=== PATIENT | female | born 1950 | race Caucasian/White ===

== ENCOUNTER 2017-10-29 00:45 | Observation (INO) | payer BC, MEDICARE ==
[~2017-10-29] VITALS: Ht 160 cm; Wt 105.7 kg
[~2017-10-29 00:45] MED LIST: ACET-2119 PO; ROSU5TAB4 PO; TELM20TA2 PO
[2017-10-29 01:57] LABS: PARTIAL THROMBOPLASTIN TIME 28 SECONDS (22-32); PROTHROMBIN TIME 10.7 SECONDS (9.0-12.0)
[2017-10-29 02:00] LABS: ALANINE AMINOTRANSFERASE 34 U/L (12-78); ALBUMIN 3.4 G/DL (3.4-5.0); ALBUMIN/GLOBULIN RATIO 0.7 (1.1-1.5); ALKALINE PHOSPHATASE 114 IU/L (46-116); ANION GAP 9 (8-16); ASPARTATE AMINO TRANSFERASE 39 U/L (10-37); BILIRUBIN,TOTAL 1.1 MG/DL (0.1-1.0); BLOOD UREA NITROGEN 19 MG/DL (7-18); BUN/CREATININE RATIO 15.2 (6.6-38.0); CALCIUM 8.9 MG/DL (8.5-10.1); CHLORIDE 97 MMOL/L (99-107); CREATININE 1.25 MG/DL (0.40-0.90); GLUCOSE 299 MG/DL (70-104); POTASSIUM 3.7 MMOL/L (3.5-5.1); SODIUM 130 MMOL/L (135-145); TOTAL CARBON DIOXIDE 24.2 MMOL/L (24-32); TOTAL PROTEIN 8.3 G/DL (6.4-8.2); eGFR 43 ML/MIN
[2017-10-29] MEDS ORDERED: ondansetron/PF 4mg/2ml inj IV ONE (02:10)
[2017-10-29] MEDS ORDERED: morphine 4 MG/ML inj SYRINge IV ONE ×3 (02:10→05:20)
[2017-10-29 02:13] LABS: BASOPHILS % (AUTO) 0.1 % (0-1); EOSINOPHILS % (AUTO) 0 % (0-6); HEMATOCRIT 38.1 % (35.0-45.0); LYMPHOCYTES # (AUTO) 1.2 X10'3 (1.1-4.8); LYMPHOCYTES % (AUTO) 6.3 % (21-51); MEAN CORPUSCULAR HEMOGLOBIN 28.3 PG (27.0-31.0); MEAN CORPUSCULAR VOLUME 83.2 FL (78-98); MEAN PLATELET VOLUME 8.8 FL (7.4-10.4); MONOCYTES # (AUTO) 1.4 X10'3 (0-0.9); MONOCYTES % (AUTO) 7.8 % (2-12); NEUTROPHILS # (AUTO) 15.7 X10'3 (1.8-7.7); NEUTROPHILS % (AUTO) 85.8 % (42-75); PLATELET COUNT 251 X10'3 (140-440); RED BLOOD COUNT 4.57 X10'6 (4.20-5.60); RED CELL DISTRIBUTION WIDTH 13.1 % (11.5-14.5); WHITE BLOOD COUNT 18.3 X10'3 (4.5-11.0)
[2017-10-29 02:32] LABS: D-DIMER 0.87 MG/L FEU (0-0.50)
[2017-10-29] MEDS ORDERED: iohexol 350MG/ML 100ml bottle IV ONE (02:40)
[2017-10-29] MEDS ORDERED: normal saline 1000ML IV soln IVB ONE (03:45)
[2017-10-29 04:17] LABS: PLATELET ESTIMATE NORMAL; TOTAL CELLS COUNTED 100
[2017-10-29 06:43] LABS: HEMOGLOBIN A1C 10.2 % (4.5-6.2)
[2017-10-29 07:02] LABS: CLARITY,URINE CLEAR (Clear); COLOR,URINE YELLOW (Yellow); GLUCOSE, URINE 250 mg/dl (Neg); KETONES,URINE NEGATIVE (Neg); LEUKOCYTE ESTERASE ,URINE NEGATIVE (Neg); NITRITES, URINE POSITIVE (Neg); OCCULT BLOOD,URINE TRACE-INTACT (Neg); PH,URINE 5.5 (4.8-8.0); PROTEIN,URINE TRACE mg/dl (Neg)
[2017-10-29 07:03] LABS: UA COLLECTION TYPE CLN CATCH MIDSTREAM
[2017-10-29 07:10] LABS: BACTERIA,URINE 2+ /HPF (Neg); MUCUS STRANDS FEW /LPF (Neg); RBC,URINE 0-2 /HPF (0-2); SQUAMOUS EPITHELIAL CELL,UR NONE SEEN /LPF (FEW); TRANSITIONAL EPI CELLS,URINE FEW /HPF
[2017-10-29] MEDS ORDERED: CefTRIAXone 2gm/D5W 50ml 50 ML IV ONE (08:15)
[2017-10-29] MEDS ORDERED: dextrose ORAL solution 15 GM/59 ML bottle PO PRN ×2 (08:25)
[2017-10-29] MEDS ORDERED: MESSAGE TO PHARMACY PO ONE (08:25)
[2017-10-29] MEDS ORDERED: mag hydrox/Alum hydrox/simeth 30ml oral suspension PO PRN (08:25)
[2017-10-29] MEDS ORDERED: acetaminophen 325mg tablet PO PRN ×2 (08:25)
[2017-10-29] MEDS ORDERED: glucagon, human recombinant 1mg kit SUBCUT PRN (08:25)
[2017-10-29] MEDS ORDERED: dextrose 50%-water 50ml dispensing syringe IV PRN ×2 (08:25)
[2017-10-29] MEDS ORDERED: morphine 4 MG/ML inj SYRINge IV PRN (08:25)
[2017-10-29] MEDS ORDERED: magnesium hydroxide 30ml (MOM) UD suspension PO PRN (08:25)
[2017-10-29] MEDS ORDERED: HYDROcodone/acetaminophen 5mg/325mg tablet PO PRN (08:25)
[2017-10-29] MEDS: normal saline 1000ml 1,000 ML IV SCH ×2 (09:04→15:26)
[2017-10-29] MEDS ORDERED: NO HOME MEDS (09:12)
[2017-10-29] MEDS: ondansetron/PF 4mg/2ml inj IV PRN ×2 (10:04→16:20)
[2017-10-29 15:45] VITALS: BP 127/55
[2017-10-29] MEDS: insulin Lispro (HumaLOG) vial - multi-dose SQ SCH (19:14)
[2017-10-29 20:00] VITALS: BP 123/55
[2017-10-29] MEDS ORDERED: insulin glargine (Lantus) pen - multi-dose SQ SCH (21:00)
[2017-10-29 22:00] VITALS: BP_SYST 113; BP_SYST 132; BP_SYST 143; BP_DIAS 57; BP_DIAS 62; BP_DIAS 66
[2017-10-30] VITALS: BP 148/67
[2017-10-30] MEDS: ondansetron/PF 4mg/2ml inj IV PRN (00:20)
[2017-10-30] MEDS: normal saline 1000ml 1,000 ML IV SCH (00:26)
[2017-10-30 05:16] LABS: BASOPHILS % (AUTO) 0.4 % (0-1); EOSINOPHILS # (AUTO) 0.3 X10'3 (0-0.9); HEMATOCRIT 29.4 % (35.0-45.0); HEMOGLOBIN 10.1 g/dl (12.0-16.0); LYMPHOCYTES # (AUTO) 2.5 X10'3 (1.1-4.8); LYMPHOCYTES % (AUTO) 24.1 % (21-51); MEAN CORPUSCULAR HEMOGLOBIN 28.5 PG (27.0-31.0); MEAN CORPUSCULAR HGB CONC 34.3 % (33.0-36.5); MEAN PLATELET VOLUME 8.8 FL (7.4-10.4); MONOCYTES # (AUTO) 1.2 X10'3 (0-0.9); MONOCYTES % (AUTO) 11.8 % (2-12); NEUTROPHILS # (AUTO) 6.2 X10'3 (1.8-7.7); NEUTROPHILS % (AUTO) 60.7 % (42-75); PLATELET COUNT 187 X10'3 (140-440); RED BLOOD COUNT 3.54 X10'6 (4.20-5.60); RED CELL DISTRIBUTION WIDTH 13.4 % (11.5-14.5); WHITE BLOOD COUNT 10.3 X10'3 (4.5-11.0)
[2017-10-30 05:45] LABS: ALBUMIN 2.4 G/DL (3.4-5.0); ANION GAP 9 (8-16); BLOOD UREA NITROGEN 16 MG/DL (7-18); CALCIUM 7.9 MG/DL (8.5-10.1); CHLORIDE 103 MMOL/L (99-107); CREATININE 1.14 MG/DL (0.40-0.90); GLUCOSE 178 MG/DL (70-104); POTASSIUM 3.5 MMOL/L (3.5-5.1); SODIUM 135 MMOL/L (135-145); TOTAL CARBON DIOXIDE 23.2 MMOL/L (24-32); eGFR 48 ML/MIN
[2017-10-30 07:46] VITALS: BP 127/54
[2017-10-30 08:00] VITALS: BP_SYST 132; BP_SYST 133; BP_SYST 143; BP_DIAS 57; BP_DIAS 62; BP_DIAS 66
[2017-10-30] MEDS: insulin Lispro (HumaLOG) vial - multi-dose SQ SCH (08:29)
[2017-10-30] MEDS ORDERED: ONDA4TAB6 PO (08:41)
== END 2017-10-30 11:01 | disposition home or self-care (01) ==
LOC: ER 00:45 → ED HOLD 08:24 → SUR 3N 14:29
PROVIDERS: ADMIT Internal Medicine; ATTEND Internal Medicine
DX: N17.9 Acute kidney failure, unspecified (principal); R19.7 Diarrhea, unspecified; E13.10 Other specified diabetes mellitus with ketoacidosis without coma; E66.01 Morbid (severe) obesity due to excess calories; E78.00 Pure hypercholesterolemia, unspecified; E78.5 Hyperlipidemia, unspecified; I10 Essential (primary) hypertension; N64.4 Mastodynia; J45.909 Unspecified asthma, uncomplicated; Z68.41 Body mass index [BMI] 40.0-44.9, adult; Z90.710 Acquired absence of both cervix and uterus; Z83.3 Family history of diabetes mellitus
CPT/HCPCS: 36415; 71045; 71275; 80048; 80053; 81001; 82948; 83036; 83605; 84484; 85025; 85379; 85610; 85730; 87040; 87070; 87077; 87088; 87186; 96361; 96365; 96372; 96375; 96376; 99285; A6258; G0378; J0696; J1815; J2270; J2405; J7030; Q9967

== ENCOUNTER 2021-02-20 13:41 | Observation (INO) | payer BC, MEDICARE ==
[~2021-02-20] VITALS: Ht 160 cm; Wt 104.5 kg
[~2021-02-20 13:41] MED LIST changes: -ACET-2119 PO; +NO HOME MEDS; +ONDA4TAB6 PO; -ROSU5TAB4 PO; -TELM20TA2 PO
[2021-02-20 14:34] LABS: BASOPHILS # (AUTO) 0.1 X10'3 (0-0.2); BASOPHILS % (AUTO) 0.8 % (0-1); EOSINOPHILS # (AUTO) 0.3 X10'3 (0-0.9); EOSINOPHILS % (AUTO) 3.7 % (0-6); HEMATOCRIT 34.4 % (35.0-45.0); HEMOGLOBIN 11.7 g/dl (12.0-16.0); LYMPHOCYTES # (AUTO) 2.5 X10'3 (1.1-4.8); LYMPHOCYTES % (AUTO) 26.7 % (21-51); MEAN CORPUSCULAR HEMOGLOBIN 28.2 PG (27.0-31.0); MEAN CORPUSCULAR VOLUME 82.9 FL (78-98); MONOCYTES # (AUTO) 0.9 X10'3 (0-0.9); MONOCYTES % (AUTO) 9.2 % (2-12); NEUTROPHILS # (AUTO) 5.5 X10'3 (1.8-7.7); NEUTROPHILS % (AUTO) 59.6 % (42-75); PLATELET COUNT 337 X10'3 (140-440); RED BLOOD COUNT 4.15 X10'6 (4.20-5.60); RED CELL DISTRIBUTION WIDTH 13.2 % (11.5-14.5); WHITE BLOOD COUNT 9.2 X10'3 (4.5-11.0)
[2021-02-20 14:47] LABS: ALANINE AMINOTRANSFERASE 23 U/L (12-78); ALBUMIN 3.1 G/DL (3.4-5.0); ALBUMIN/GLOBULIN RATIO 0.7 (1.1-1.5); ALKALINE PHOSPHATASE 109 IU/L (46-116); ANION GAP 7 (8-16); ASPARTATE AMINO TRANSFERASE 18 U/L (10-37); BILIRUBIN,TOTAL 0.5 MG/DL (0.1-1.0); BLOOD UREA NITROGEN 22 MG/DL (7-18); BUN/CREATININE RATIO 20.8 (6.6-38.0); CALCIUM 8.5 MG/DL (8.5-10.1); CHLORIDE 107 MMOL/L (99-107); CREATININE 1.06 MG/DL (0.40-0.90); GLUCOSE 200 MG/DL (70-104); POTASSIUM 4.4 MMOL/L (3.5-5.1); SODIUM 142 MMOL/L (135-145); TOTAL CARBON DIOXIDE 27.9 MMOL/L (24-32); TOTAL PROTEIN 7.4 G/DL (6.4-8.2); eGFR 51 ML/MIN
[2021-02-20] MEDS ORDERED: LINA5TAB4 PO (15:42)
[2021-02-20] MEDS ORDERED: TELM80TA9 PO (15:42)
[2021-02-20] MEDS ORDERED: ALBU18HF2 IH (15:42)
[2021-02-20] MEDS ORDERED: mag hydrox/Alum hydrox/simeth 30ml oral suspension PO PRN (15:55)
[2021-02-20] MEDS ORDERED: acetaminophen 325mg tablet PO PRN (15:55)
[2021-02-20] MEDS ORDERED: morphine 2 MG/ML inj. syringe IV PRN ×2 (15:55)
[2021-02-20] MEDS ORDERED: magnesium hydroxide 30ml (MOM) UD suspension PO PRN (15:55)
[2021-02-20] MEDS ORDERED: ondansetron/PF 4mg/2ml inj IV PRN (15:55)
[2021-02-20] MEDS ORDERED: normal saline 1000ml 1,000 ML IV SCH (15:55)
[2021-02-20] MEDS ORDERED: albuterol 2.5 MG/3 ML nebule NEB PRN (16:05)
[2021-02-20] MEDS ORDERED: LORazepam 1 MG tablet PO ONE (16:20)
[2021-02-20 17:10] VITALS: BP 167/79
[2021-02-20] MEDS ORDERED: aminophylline 250mg/10ml inj. IV PRN (18:30)
[2021-02-20] MEDS ORDERED: metoprolol tartrate 1mg/ml inj IV PRN (18:30)
[2021-02-20] MEDS ORDERED: regadenoson 0.4mg/5ml syringe IV PRN (18:30)
[2021-02-20] MEDS ORDERED: nitroGLYCERIN 0.4mg SUBLingual tab SL PRN (18:30)
--- NOTE | 2021-02-20 18:58 | NUR ---
Assumed care of pt at this time. Pt already off unit as she left AMA with formed signed. Dr. Pierre carreno at 1950. Awaiting return page
--- NOTE | 2021-02-20 19:18 | NUR ---
Spoke with Dr. Pierre MD aware pt left AMA.
[2021-02-20] MEDS ORDERED: docusate sod 100mg capsule PO SCH (20:00)
[2021-02-21] MEDS ORDERED: enoxaparin 40mg/0.4ml syringe SUBCUT SCH (08:00)
[2021-02-21] MEDS ORDERED: losartan 50mg tablet PO SCH (08:00)
[2021-02-21] MEDS ORDERED: linagliptin 5mg tablet PO SCH (08:00)
== END 2021-02-20 21:00 | disposition left against medical advice (07) ==
LOC: ER 13:41 → ED HOLD 15:55
PROVIDERS: ADMIT Family Medicine; ATTEND Family Medicine
DX: R07.89 Other chest pain (principal); I10 Essential (primary) hypertension; E78.5 Hyperlipidemia, unspecified; E11.9 Type 2 diabetes mellitus without complications; E78.00 Pure hypercholesterolemia, unspecified; J45.909 Unspecified asthma, uncomplicated; F41.8 Other specified anxiety disorders; Z53.29 Procedure and treatment not carried out because of patient's decision for other reasons; Z90.710 Acquired absence of both cervix and uterus; Z79.899 Other long term (current) drug therapy
CPT/HCPCS: 36415; 71045; 80053; 84484; 85025; 93005; 93306; 94760; G0378; 99285

== ENCOUNTER 2021-11-29 11:21 | Emergency (ER) | payer BC ==
[~2021-11-29 11:21] MED LIST changes: +ALBU18HF2 IH; +LINA5TAB4 PO; -NO HOME MEDS; -ONDA4TAB6 PO; +TELM80TA9 PO
== END 2021-11-29 12:15 | disposition left against medical advice (07) ==
LOC: ER 11:22
DX: N64.4 Mastodynia (principal); Z53.21 Procedure and treatment not carried out due to patient leaving prior to being seen by health care provider

== ENCOUNTER 2021-11-29 19:14 | Emergency (ER) | payer BC ==
[~2021-11-29] VITALS: Ht 160 cm; Wt 113.6 kg
[2021-11-29 19:23] VITALS: BP 165/70
[2021-11-29 20:16] LABS: BASOPHILS # (AUTO) 0.1 X10'3 (0-0.2); BASOPHILS % (AUTO) 0.8 % (0-1); EOSINOPHILS # (AUTO) 0.4 X10'3 (0-0.9); EOSINOPHILS % (AUTO) 3.2 % (0-6); HEMATOCRIT 35.3 % (35.0-45.0); LYMPHOCYTES # (AUTO) 3.6 X10'3 (1.1-4.8); LYMPHOCYTES % (AUTO) 31.4 % (21-51); MEAN CORPUSCULAR HGB CONC 33.9 g/dL (33.0-36.5); MEAN CORPUSCULAR VOLUME 82.6 FL (78-98); MEAN PLATELET VOLUME 8.7 FL (7.4-10.4); MONOCYTES % (AUTO) 8.4 % (2-12); NEUTROPHILS # (AUTO) 6.4 X10'3 (1.8-7.7); NEUTROPHILS % (AUTO) 56.2 % (42-75); PLATELET COUNT 328 X10'3 (140-440); RED BLOOD COUNT 4.27 X10'6 (4.20-5.60); RED CELL DISTRIBUTION WIDTH 13.4 % (11.5-14.5); WHITE BLOOD COUNT 11.3 X10'3 (4.5-11.0)
[2021-11-29 20:39] LABS: ALANINE AMINOTRANSFERASE 33 U/L (12-78); ALBUMIN 3.5 G/DL (3.4-5.0); ALBUMIN/GLOBULIN RATIO 0.8 (1.1-1.5); ALKALINE PHOSPHATASE 117 IU/L (46-116); ANION GAP 10 (8-16); ASPARTATE AMINO TRANSFERASE 26 U/L (10-37); BILIRUBIN,TOTAL 0.4 MG/DL (0.1-1.0); BLOOD UREA NITROGEN 29 MG/DL (7-18); BUN/CREATININE RATIO 24.8 (6.6-38.0); CALCIUM 9.1 MG/DL (8.5-10.1); CHLORIDE 101 MMOL/L (99-107); CREATININE 1.17 MG/DL (0.40-0.90); GLUCOSE 179 MG/DL (70-104); SODIUM 138 MMOL/L (135-145); TOTAL CARBON DIOXIDE 26.7 MMOL/L (24-32); TOTAL PROTEIN 8.1 G/DL (6.4-8.2); eGFR 46 ML/MIN
== END 2021-11-29 23:55 | disposition left against medical advice (07) ==
LOC: ER 19:14
DX: R07.89 Other chest pain (principal); Z53.21 Procedure and treatment not carried out due to patient leaving prior to being seen by health care provider
CPT/HCPCS: 36415; 71045; 80053; 83880; 84484; 85025; 93005

== ENCOUNTER 2023-05-10 18:12 | Inpatient (IN) | payer BC ==
[~2023-05-10] VITALS: Ht 160 cm; Wt 106.0 kg
[~2023-05-10 18:12] MED LIST changes: +ASPI-1071 PO; +CARV6.253 PO; +CLOP75TA34 PO; -LINA5TAB4 PO; +NITR0.4T51 SL
[2023-05-10 19:19] LABS: BASOPHILS # (AUTO) 0.1 X10'3 (0-0.2); BASOPHILS % (AUTO) 0.8 % (0-1); EOSINOPHILS # (AUTO) 0.3 X10'3 (0-0.9); EOSINOPHILS % (AUTO) 4.1 % (0-6); HEMATOCRIT 35.2 % (35.0-45.0); HEMOGLOBIN 11.9 g/dl (12.0-16.0); LYMPHOCYTES # (AUTO) 2.6 X10'3 (1.1-4.8); LYMPHOCYTES % (AUTO) 38.2 % (21-51); MEAN CORPUSCULAR HEMOGLOBIN 28.9 PG (27.0-31.0); MEAN CORPUSCULAR HGB CONC 33.6 g/dL (33.0-36.5); MEAN CORPUSCULAR VOLUME 85.8 FL (78-98); MEAN PLATELET VOLUME 8.7 FL (7.4-10.4); MONOCYTES # (AUTO) 0.7 X10'3 (0-0.9); MONOCYTES % (AUTO) 10.4 % (2-12); NEUTROPHILS # (AUTO) 3.1 X10'3 (1.8-7.7); NEUTROPHILS % (AUTO) 46.5 % (42-75); PLATELET COUNT 240 X10'3 (140-440); RED BLOOD COUNT 4.11 X10'6 (4.20-5.60); RED CELL DISTRIBUTION WIDTH 12.6 % (11.5-14.5); WHITE BLOOD COUNT 6.8 X10'3 (4.5-11.0)
[2023-05-10 19:26] LABS: ALANINE AMINOTRANSFERASE 29 U/L (12-78); ALBUMIN 3.5 G/DL (3.4-5.0); ALBUMIN/GLOBULIN RATIO 0.8 (1.1-1.5); ALKALINE PHOSPHATASE 91 IU/L (46-116); ANION GAP 7 (8-16); ASPARTATE AMINO TRANSFERASE 25 U/L (10-37); BILIRUBIN,TOTAL 0.4 MG/DL (0.1-1.0); BLOOD UREA NITROGEN 20 MG/DL (7-18); BUN/CREATININE RATIO 23.8 (10.0-20.0); CHLORIDE 103 MMOL/L (99-107); CREATININE 0.84 MG/DL (0.40-0.90); GLUCOSE 115 MG/DL (70-104); POTASSIUM 4.2 MMOL/L (3.5-5.1); SODIUM 137 MMOL/L (135-145); TOTAL CARBON DIOXIDE 27.2 MMOL/L (24-32); TOTAL PROTEIN 7.9 G/DL (6.4-8.2); eGFR 67 ML/MIN
[2023-05-10 19:33] LABS: PRO BRAIN NATRIURETIC PEPTIDE 238 PG/ML (0-125)
[2023-05-10] MEDS ORDERED: iohexol 300mg/ml 100ml inj. ONE (21:20)
[2023-05-10] MEDS ORDERED: ketorolac trometh. 30mg/ml inj. IV ONE (23:05)
[2023-05-10] MEDS ORDERED: acetaminophen 325mg tablet PO ONE (23:05)
[2023-05-10] MEDS ORDERED: normal saline 1000ML IV soln IVB ONE (23:05)
[2023-05-10] MEDS ORDERED: heparin 10,000 units/1 ML INJ IV ONE ×2 (23:20→23:25)
[2023-05-10] MEDS ORDERED: heparin 25,000 UNIT/250ml bag 250 ML IV PRN (23:20)
[2023-05-10] MEDS ORDERED: heparin 10,000 units/1 ML INJ IV PRN (23:20)
[2023-05-10] MEDS ORDERED: aspirin 325mg tablet PO ONE (23:20)
[2023-05-11 00:02] LABS: BASOPHILS # (AUTO) 0.1 X10'3 (0-0.2); BASOPHILS % (AUTO) 0.7 % (0-1); EOSINOPHILS # (AUTO) 0.4 X10'3 (0-0.9); EOSINOPHILS % (AUTO) 2.8 % (0-6); HEMOGLOBIN 12.2 g/dl (12.0-16.0); LYMPHOCYTES # (AUTO) 2.9 X10'3 (1.1-4.8); LYMPHOCYTES % (AUTO) 21.2 % (21-51); MEAN CORPUSCULAR VOLUME 85.4 FL (78-98); MEAN PLATELET VOLUME 8.5 FL (7.4-10.4); MONOCYTES % (AUTO) 7.1 % (2-12); NEUTROPHILS # (AUTO) 9.2 X10'3 (1.8-7.7); NEUTROPHILS % (AUTO) 68.2 % (42-75); PLATELET COUNT 251 X10'3 (140-440); RED BLOOD COUNT 4.21 X10'6 (4.20-5.60); WHITE BLOOD COUNT 13.5 X10'3 (4.5-11.0)
[2023-05-11] MEDS ORDERED: potassium Cl 40MEQ/1/2NS 520ml 520 ML IV PRN (00:40)
[2023-05-11] MEDS ORDERED: magnesium 4gm in 100ml NS 100 ML IV PRN (00:40)
[2023-05-11] MEDS ORDERED: acetaminophen 325mg tablet PO PRN ×2 (00:40)
[2023-05-11] MEDS ORDERED: magnesium 2GM in 50ml NS 50 ML IV PRN (00:40)
[2023-05-11] MEDS ORDERED: potassium Cl 20 mEq SR tablet PO PRN ×2 (00:40)
[2023-05-11] MEDS ORDERED: magnesium Cl slow-release 64mg tablet PO PRN (00:40)
[2023-05-11] MEDS ORDERED: ondansetron/PF 4mg/2ml inj IV PRN (00:40)
[2023-05-11 00:51] LABS: APTT 27 SECONDS (22-32); PROTHROMBIN TIME 10.4 SECONDS (9.0-12.0)
[2023-05-11] MEDS: normal saline 1000ml 1,000 ML IV SCH ×2 (02:30→15:18)
[2023-05-11] MEDS ORDERED: morphine 4 MG/ML inj SYRINge IV STA (03:39)
[2023-05-11] MEDS ORDERED: morphine 2 MG/ML inj. syringe IV PRN (03:40)
[2023-05-11] MEDS ORDERED: morphine 2 MG/ML inj. syringe IV ONE (03:40)
[2023-05-11] MEDS ORDERED: heparin, porcine 5000 units/ml vial SQ SCH (08:00)
[2023-05-11 08:33] LABS: BASOPHILS # (AUTO) 0.1 X10'3 (0-0.2); BASOPHILS % (AUTO) 0.6 % (0-1); EOSINOPHILS # (AUTO) 0.3 X10'3 (0-0.9); EOSINOPHILS % (AUTO) 3.1 % (0-6); HEMATOCRIT 31.9 % (35.0-45.0); HEMOGLOBIN 10.7 g/dl (12.0-16.0); LYMPHOCYTES # (AUTO) 2.9 X10'3 (1.1-4.8); LYMPHOCYTES % (AUTO) 32.6 % (21-51); MEAN CORPUSCULAR HEMOGLOBIN 28.8 PG (27.0-31.0); MEAN CORPUSCULAR HGB CONC 33.5 g/dL (33.0-36.5); MEAN CORPUSCULAR VOLUME 85.8 FL (78-98); MEAN PLATELET VOLUME 8.8 FL (7.4-10.4); MONOCYTES # (AUTO) 0.9 X10'3 (0-0.9); NEUTROPHILS # (AUTO) 4.7 X10'3 (1.8-7.7); NEUTROPHILS % (AUTO) 53.7 % (42-75); PLATELET COUNT 207 X10'3 (140-440); RED BLOOD COUNT 3.72 X10'6 (4.20-5.60); RED CELL DISTRIBUTION WIDTH 13.2 % (11.5-14.5); WHITE BLOOD COUNT 8.8 X10'3 (4.5-11.0)
[2023-05-11 10:40] LABS: ALANINE AMINOTRANSFERASE 22 U/L (12-78); ALBUMIN 3.1 G/DL (3.4-5.0); ALBUMIN/GLOBULIN RATIO 0.9 (1.1-1.5); ALKALINE PHOSPHATASE 82 IU/L (46-116); ANION GAP 8 (8-16); ASPARTATE AMINO TRANSFERASE 31 U/L (10-37); BILIRUBIN,TOTAL 0.6 MG/DL (0.1-1.0); BLOOD UREA NITROGEN 18 MG/DL (7-18); BUN/CREATININE RATIO 21.4 (10.0-20.0); CALCIUM 8.9 MG/DL (8.5-10.1); CHLORIDE 106 MMOL/L (99-107); CREATININE 0.84 MG/DL (0.40-0.90); GLUCOSE 122 MG/DL (70-104); SODIUM 139 MMOL/L (135-145); TOTAL CARBON DIOXIDE 24.9 MMOL/L (24-32); TOTAL PROTEIN 6.7 G/DL (6.4-8.2); eCRCL 50 ML/MIN; eGFR 67 ML/MIN
[2023-05-11 11:53] VITALS: BP 140/64; PULSE 75; RESP 18; TEMP 98.7; O2SAT 99
[2023-05-11] MEDS ORDERED: metoprolol tartrate 1mg/ml inj IV PRN (13:00)
[2023-05-11] MEDS ORDERED: nitroGLYCERIN 0.4mg SUBLingual tab SL PRN (13:00)
[2023-05-11] MEDS ORDERED: aminophylline 250mg/10ml inj. IV PRN (13:00)
[2023-05-11] MEDS ORDERED: regadenoson 0.4mg/5ml syringe IV PRN (13:00)
[2023-05-11] MEDS: clopidogrel 75mg tablet PO SCH (13:43)
[2023-05-11] MEDS: aspirin 81mg, enteric-coated 1 TAB TABLET.DR PO SCH (13:43)
[2023-05-11 15:00] VITALS: BP 144/61; PULSE 71; RESP 18; TEMP 98.4; O2SAT 98
[2023-05-11] MEDS: traMADol 50MG tablet PO PRN (17:19)
[2023-05-11 18:00] VITALS: BP 151/73; PULSE 85; RESP 14; TEMP 97.4; O2SAT 100
[2023-05-11 19:00] VITALS: RESP 16; O2SAT 96
[2023-05-11] MEDS: carvedilol 6.25mg tablet PO SCH (19:54)
[2023-05-11] MEDS ORDERED: temazepam 15mg capsule PO PRN (21:00)
[2023-05-12] VITALS (10 sets, daily range): BP systolic 123–148; BP diastolic 40–63; PULSE 66–93; RESP 12–18; TEMP 97.6–97.9; O2SAT 96–100
[2023-05-12] MEDS: normal saline 1000ml 1,000 ML IV SCH ×2 (05:18→07:05)
[2023-05-12] MEDS: traMADol 50MG tablet PO PRN (05:35)
[2023-05-12] MEDS: clopidogrel 75mg tablet PO SCH (07:46)
[2023-05-12] MEDS: aspirin 81mg, enteric-coated 1 TAB TABLET.DR PO SCH (07:46)
[2023-05-12] MEDS: carvedilol 6.25mg tablet PO SCH ×2 (08:00→12:14)
[2023-05-12 08:36] LABS: BASOPHILS # (AUTO) 0.1 X10'3 (0-0.2); BASOPHILS % (AUTO) 0.5 % (0-1); EOSINOPHILS # (AUTO) 0.2 X10'3 (0-0.9); EOSINOPHILS % (AUTO) 2.1 % (0-6); HEMOGLOBIN 9.5 g/dl (12.0-16.0); LYMPHOCYTES # (AUTO) 3.5 X10'3 (1.1-4.8); LYMPHOCYTES % (AUTO) 32.7 % (21-51); MEAN CORPUSCULAR HGB CONC 33.9 g/dL (33.0-36.5); MEAN CORPUSCULAR VOLUME 85.7 FL (78-98); MONOCYTES # (AUTO) 1.3 X10'3 (0-0.9); MONOCYTES % (AUTO) 12.1 % (2-12); NEUTROPHILS # (AUTO) 5.5 X10'3 (1.8-7.7); NEUTROPHILS % (AUTO) 52.6 % (42-75); PLATELET COUNT 202 X10'3 (140-440); RED BLOOD COUNT 3.27 X10'6 (4.20-5.60); RED CELL DISTRIBUTION WIDTH 12.6 % (11.5-14.5); WHITE BLOOD COUNT 10.6 X10'3 (4.5-11.0)
[2023-05-12 08:51] LABS: ALANINE AMINOTRANSFERASE 24 U/L (12-78); ALBUMIN 3.1 G/DL (3.4-5.0); ALBUMIN/GLOBULIN RATIO 0.9 (1.1-1.5); ALKALINE PHOSPHATASE 85 IU/L (46-116); ANION GAP 8 (8-16); ASPARTATE AMINO TRANSFERASE 23 U/L (10-37); BILIRUBIN,TOTAL 0.7 MG/DL (0.1-1.0); BLOOD UREA NITROGEN 19 MG/DL (7-18); BUN/CREATININE RATIO 24.4 (10.0-20.0); CALCIUM 8.3 MG/DL (8.5-10.1); CHLORIDE 103 MMOL/L (99-107); CREATININE 0.78 MG/DL (0.40-0.90); GLUCOSE 102 MG/DL (70-104); POTASSIUM 3.8 MMOL/L (3.5-5.1); SODIUM 137 MMOL/L (135-145); TOTAL CARBON DIOXIDE 26.3 MMOL/L (24-32); TOTAL PROTEIN 6.6 G/DL (6.4-8.2); eCRCL 54 ML/MIN; eGFR 73 ML/MIN
[2023-05-12] MEDS ORDERED: ATOR10TA87 PO (10:38)
== END 2023-05-12 14:33 | disposition home or self-care (01) | DRG 562 ==
LOC: ER 18:13 → ED HOLD 05-11 00:42 → PCU 3S 05-11 07:15 → OBSVTOIN 05-11 10:32
PROVIDERS: ADMIT Internal Medicine; ATTEND Internal Medicine
PROC: BW251ZZ Computerized Tomography (CT Scan) of Chest, Abdomen and Pelvis using Low Osmolar Contrast (ICD-10-PCS; principal; 2023-05-10)
PROC: 4A02XM4 Measurement of Cardiac Total Activity, External Approach (ICD-10-PCS; 2023-05-12)
PROC: 3E033HZ Introduction of Radioactive Substance into Peripheral Vein, Percutaneous Approach (ICD-10-PCS; 2023-05-12)
DX: S29.011A Strain of muscle and tendon of front wall of thorax, initial encounter (principal); I21.A1 Myocardial infarction type 2; Z68.41 Body mass index [BMI] 40.0-44.9, adult; S80.02XA Contusion of left knee, initial encounter; E11.9 Type 2 diabetes mellitus without complications; D64.9 Anemia, unspecified; E78.00 Pure hypercholesterolemia, unspecified; I10 Essential (primary) hypertension; J45.909 Unspecified asthma, uncomplicated; F41.9 Anxiety disorder, unspecified; F32.A Depression, unspecified; K59.00 Constipation, unspecified; I25.10 Atherosclerotic heart disease of native coronary artery without angina pectoris; E66.9 Obesity, unspecified; W01.0XXA Fall on same level from slipping, tripping and stumbling without subsequent striking against object, initial encounter; S50.02XA Contusion of left elbow, initial encounter; M19.90 Unspecified osteoarthritis, unspecified site; Y93.89 Activity, other specified; Y92.89 Other specified places as the place of occurrence of the external cause; Y99.8 Other external cause status; Z90.710 Acquired absence of both cervix and uterus; Z90.49 Acquired absence of other specified parts of digestive tract; Z82.49 Family history of ischemic heart disease and other diseases of the circulatory system; Z83.3 Family history of diabetes mellitus; Z95.5 Presence of coronary angioplasty implant and graft; Z88.5 Allergy status to narcotic agent; Z79.899 Other long term (current) drug therapy; Z79.82 Long term (current) use of aspirin; Z79.02 Long term (current) use of antithrombotics/antiplatelets; I25.2 Old myocardial infarction; G47.30 Sleep apnea, unspecified
CPT/HCPCS: 36415; 71045; 71260; 73564; 74177; 78452; 80053; 82948; 83036; 83605; 83880; 84145; 84484; 85025; 85610; 85651; 85730; 87040; 93005; 93017; 93306; 97161; 97530; 99285; A9500; G0378; J1644; J2270; J2405; J2785; J3490; J7030; Q9967